=== PATIENT | male | born 1980 | race Caucasian/White ===

== ENCOUNTER 2019-11-07 15:31 | Emergency (ER) | payer OTHER ==
[~2019-11-07] VITALS: Ht 165.1 cm; Wt 62.1 kg
[~2019-11-07 15:31] MED LIST changes: -IBUP-1022 PO; -LIDO5DIS41 TOP; -TIZA2CAP6 PO
[2019-11-07] MEDS ORDERED: IBUP-1022 PO (15:39)
[2019-11-07] MEDS ORDERED: TIZA2CAP6 PO (15:39)
[2019-11-07] MEDS ORDERED: NS 1,000 ML IV ONE (17:15)
[2019-11-07] MEDS ORDERED: KETOROLAC 30 MG/ML 1ML VIAL IV ONE (17:15)
--- NOTE | 2019-11-07 17:35 | REPVR ---
PROCEDURE INFORMATION: Exam: CT Abdomen And Pelvis Without Contrast Exam date and time: 11/07/2019 5:09 PM Age: 39 years old Clinical indication: Abdominal pain; Additional info: Flank pain R/O kidney stone TECHNIQUE: Imaging protocol: Computed tomography of the abdomen and pelvis without contrast. Axial, coronal and sagittal reformatted images were created and reviewed. Radiation optimization: All CT scans at this facility use at least one of these dose optimization techniques: automated exposure control; mA and/or kV adjustment per patient size (includes targeted exams where dose is matched to clinical indication); or iterative reconstruction. COMPARISON: CT ABD PELVIS W/O CONTRAST 12/03/2017 9:40 AM FINDINGS: Liver: Unremarkable. Gallbladder and bile ducts: No radiodense gallstones. No biliary ductal dilatation. Pancreas: Unremarkable. Spleen: Unremarkable. Adrenals: Unremarkable. Kidneys and ureters: Nonobstructing right renal calculus. No hydronephrosis. Stomach and bowel: Moderate amount of retained stool in the colon. No obstruction. No bowel wall thickening. No pneumatosis. Appendix: Normal. Intraperitoneal space: No free fluid. No organized fluid collection. No free air. Vasculature: Unremarkable. No aneurysm. Lymph nodes: No pathologically enlarged lymph nodes. Bladder: Mild circumferential urinary bladder wall thickening, likely secondary to underdistention. Reproductive: Unremarkable. Bones/joints: No acute osseous abnormality. Soft tissues: Tiny, fat containing umbilical hernia. IMPRESSION: 1. Limited noncontrast examination without CT evidence of acute intra-abdominal or pelvic pathology. 2. Additional findings, as above. Electronically signed by: Nilson Lagunas On 11/07/2019 17:35:54 PM
[2019-11-07 17:47] LABS: BASO # 0.1 10^3/uL (0.0-0.2); BASO % 0.5 % (0.0-1.0); EOS # 0.1 10^3/uL (0.0-0.5); EOS % 1.1 % (0.0-3.0); HEMATOCRIT 46.1 % (42.0-52.0); HEMOGLOBIN 15.5 g/dl (13.5-17.5); LYMPH # 2.5 10^3/uL (1.5-5.0); MEAN CORPUSCULAR HEMOGLOBIN 32.2 pg (27.0-33.0); MEAN CORPUSCULAR HGB CONC 33.6 g/dl (32.0-36.5); MEAN CORPUSCULAR VOLUME 95.8 fl (80.0-96.0); MONO # 1.1 10^3/uL (0.0-0.8); MONO % 10.1 % (0.0-5.0); NEUTROPHILS # 7.1 10^3/uL (1.5-8.5); PLATELET COUNT, AUTOMATED 404 10^3/uL (150-450); RED BLOOD COUNT 4.81 10^6/uL (4.30-6.10)
[2019-11-07 18:18] LABS: ALBUMIN 3.8 GM/DL (3.2-5.2); ALT/SGPT 26 U/L (12-78); BILIRUBIN,DIRECT < 0.1 MG/DL (0.0-0.2); BILIRUBIN,TOTAL 0.2 MG/DL (0.2-1.0); LIPASE 142 U/L (73-393); TOTAL PROTEIN 7.8 GM/DL (6.4-8.2)
[2019-11-07] MEDS ORDERED: LIDOCAINE 5% (LIDODERM) PATCH TD ONE (18:30)
[2019-11-07] MEDS ORDERED: LIDO5DIS41 TOP (19:56)
[2019-11-07 20:00] VITALS: BP 146/84
[2019-11-07] MEDS ORDERED: **NOTE PATIENT COMMENT** MISC XX SCH (21:00)
== END 2019-11-07 20:14 | disposition home or self-care (01) ==
LOC: M ED 15:31
DX: M54.9 Dorsalgia, unspecified (principal); Z87.442 Personal history of urinary calculi; Z72.0 Tobacco use; Z91.018 Allergy to other foods
CPT/HCPCS: 74176; 80047; 80076; 81001; 83690; 85025; 85379; 96361; 96374; 99284; J1885

== ENCOUNTER → 2019-11-07 | Outpatient (REF) | payer OTHER ==
[~2019-11-07] MED LIST: FLOM0.4C39 PO; HYDR-3715 PO; IBUP-1022 PO; LIDO5DIS41 TOP; TIZA2CAP6 PO
== END ==
LOC: M SFHCLERA 13:25
PROVIDERS: ATTEND Nurse Practitioner Family
DX: R10.9 Unspecified abdominal pain (principal)

== ENCOUNTER → 2019-11-07 | Outpatient (CLI) | payer OTHER ==
--- NOTE | 2019-11-07 15:32 | REP ---
REASON: Flank pain. COMPARISON: None. KUB: FINDINGS: KUB shows the intestinal gas pattern to be nonspecific. The organ silhouettes insofar as delineated are unremarkable. There is no evidence of free intraperitoneal air. Bowel content obscures all of the right nephric silhouette and some of the left. No abnormal calcifications are definitively identified. IMPRESSION: Nonspecific. Electronically Signed by Darrion Gómez DO 11/07/2019 04:02 P
== END ==
LOC: M LRY 12:47
PROVIDERS: ATTEND Nurse Practitioner Family
DX: R10.9 Unspecified abdominal pain (principal)

== ENCOUNTER 2023-07-09 15:26 | Emergency (ER) | payer OTHER ==
[~2023-07-09] VITALS: Ht 165.1 cm; Wt 68.9 kg
[~2023-07-09 15:26] MED LIST changes: +IBUP-1022 PO; +LIDO5DIS41 TOP; +TIZA2CAP6 PO
[2023-07-09 18:39] VITALS: BP 152/94; TEMP 97.7; O2SAT 100
[2023-07-09] MEDS ORDERED: IBUP-1022 PO (18:40)
== END 2023-07-09 18:46 | disposition home or self-care (01) ==
LOC: M ED 15:26
DX: S50.02XA Contusion of left elbow, initial encounter (principal); Y04.8XXA Assault by other bodily force, initial encounter; Y92.149 Unspecified place in prison as the place of occurrence of the external cause; Y93.89 Activity, other specified; Y99.0 Civilian activity done for income or pay; F17.200 Nicotine dependence, unspecified, uncomplicated; Z91.09 Other allergy status, other than to drugs and biological substances

== ENCOUNTER 2024-05-28 13:52 | Emergency (ER) | payer OTHER ==
[~2024-05-28] VITALS: Ht 165.1 cm; Wt 68.3 kg
[~2024-05-28 13:52] MED LIST changes: +TIZA2CAP3 PO; -TIZA2CAP6 PO
[2024-05-28 15:47] VITALS: BP 175/89; TEMP 97.6; O2SAT 97
== END 2024-05-28 16:13 | disposition home or self-care (01) ==
LOC: M ED 13:52
DX: S62.616A Displaced fracture of proximal phalanx of right little finger, initial encounter for closed fracture (principal); X58.XXXA Exposure to other specified factors, initial encounter; Y92.9 Unspecified place or not applicable; Y93.9 Activity, unspecified; Y99.0 Civilian activity done for income or pay

== ENCOUNTER 2025-02-21 10:52 | Emergency (ER) | payer OTHER ==
[~2025-02-21] VITALS: Ht 165.1 cm; Wt 64.8 kg
[~2025-02-21 10:52] MED LIST changes: -FLOM0.4C39 PO; -IBUP-1022 PO; +IBUP600T42 PO; +LIDO1ADH93 TOP; -LIDO5DIS41 TOP; +TAMS-18 PO
[2025-02-21 10:54] VITALS: TEMP 98
[2025-02-21 11:28] LABS: BASO # 0.1 10^3/uL (0.0-0.2); BASO % 0.5 % (0.0-1.0); EOS # 0.2 10^3/uL (0.0-0.5); EOS % 1.1 % (0.0-3.0); LYMPH # 4.4 10^3/uL (1.5-5.0); LYMPH % 33.6 % (24.0-44.0); MONO # 1.1 10^3/uL (0.0-0.8); MONO % 8.3 % (2.0-8.0); NEUTROPHILS # 7.3 10^3/uL (1.5-8.5); NEUTROPHILS % 56.0 % (36.0-66.0); PLATELET COUNT, AUTOMATED 491 10^3/uL (150-450)
[2025-02-21 12:00] LABS: CALCIUM LEVEL 9.3 MG/DL (8.5-10.1); CARBON DIOXIDE LEVEL 20.0 MMOL/L (20-31); CHLORIDE LEVEL 104.0 MMOL/L (98-107); CREATININE FOR GFR 1.06 MG/DL (0.70-1.30); GLOMERULAR FILTRATION RATE 89.3 (>60); POTASSIUM SERUM 3.8 MMOL/L (3.5-5.1); SODIUM LEVEL 140.0 MMOL/L (136-145)
[2025-02-21 12:14] LABS: KETONE, URINE AUTO RFX 1+ mg/dL (NEGATIVE); LEUKOCYTE ESTERASE UR AUTO RFX NEGATIVE (NEGATIVE); MUCUS, URINE RFX LARGE (NEGATIVE); NITRITE, URINE AUTO RFX NEGATIVE (NEGATIVE); RBC, URINE AUTO RFX 22 /HPF (0-3); SQUAM EPITHELIAL CELL UR AURFX 0 /HPF (0-6); WBC, URINE AUTO RFX 3 /HPF (0-3)
[2025-02-21 12:31] VITALS: BP 129/60; O2SAT 100
== END 2025-02-21 13:45 | disposition left against medical advice (07) ==
LOC: M ED 10:52
DX: Z53.21 Procedure and treatment not carried out due to patient leaving prior to being seen by health care provider (principal)